=== PATIENT | male | born 1945 | race Caucasian/White ===

== ENCOUNTER 2017-01-21 05:44 | Emergency (ER) | payer MEDICARE, OTHER ==
[2017-01-21 05:53] VITALS: TEMP 97.5
--- NOTE | 2017-01-21 06:21 | ED ---
General Adult HPI - General Source: patient, RN notes reviewed Mode of arrival: ambulatory Limitations: no limitations <Milton Marin - Last Filed: 01/21/17 06:55> <Fidel Lopez - Last Filed: 01/21/17 10:32> - General Chief complaint: Extremity Injury, Lower Stated complaint: Numbness in legs Time Seen by Provider: 01/21/17 05:50 - History of Present Illness Initial comments: This is a 71-year-old male who presents emergency Department complaining of bilateral foot pain much much worse in the left foot. Patient states the pain seems to be somewhat intermittent in that it comes on very severe and then at times when he rests it seems to subside. Patient denies any recent injury. Patient has had any indication of the toes on the right foot secondary to an infection years ago. Patient states the more he moves a lot more it hurts. It definitely hurts to touch the toes of the foot. Patient denies any fever or chills patient denies any redness and in fact he states his foot is very pale at times. Patient denies any edema or swelling patient denies any calf pain. Patient does state he has had a history of blood clots in the past. Patient denies any difficulty breathing shortness of breath per patient denies any chest pain. Patient denies abdominal pain patient denies nausea vomiting diarrhea (Milton Marin) - Related Data Home Medications Medication Instructions Recorded Confirmed Aspirin 325 mg PO DAILY 01/21/17 01/21/17 Lisinopril-Hctz 20-25 mg 1 tab PO DAILY 01/21/17 01/21/17 [Zestoretic 20-25] Metoprolol Tartrate [Lopressor] 50 mg PO BID 01/21/17 01/21/17 Multivitamins, Thera [Multivitamin 1 tab PO DAILY 01/21/17 01/21/17 (formulary)] Allergies Allergy/AdvReac Type Severity Reaction Status Date / Time No Known Allergies Allergy Verified 01/21/17 08:20 Review of Systems ROS Other: All systems not noted in ROS Statement are negative. <Milton Marin - Last Filed: 01/21/17 06:55> ROS Other: All systems not noted in ROS Statement are negative. <Fidel Lopez - Last Filed: 09/27/17 10:32> ROS Statement: Those systems with pertinent positive or pertinent negative responses have been documented in the HPI. Past Medical History Past Medical History: Cancer Additional Past Medical History / Comment(s): hx of skin cancer, hx of blood clots History of Any Multi-Drug Resistant Organisms: None Reported Past Psychological History: No Psychological Hx Reported Smoking Status: Former smoker Past Alcohol Use History: None Reported Past Drug Use History: None Reported <Milton Marin - Last Filed: 01/21/17 06:55> General Exam Limitations: no limitations <Milton Marin - Last Filed: 01/21/17 06:55> <Fidel Lopez - Last Filed: 01/21/17 10:32> - General Exam Comments Initial Comments: GENERAL: Patient is well-developed and well-nourished. Patient is nontoxic and well- hydrated and is in moderate distress. ENT: Neck is soft and supple. No significant lymphadenopathy is noted. Oropharynx is clear. Moist mucous membranes. Neck has full range of motion without eliciting any pain. EYES: The sclera were anicteric and conjunctiva were pink and moist. Extraocular movements were intact and pupils were equal round and reactive to light. Eyelids were unremarkable. PULMONARY: Unlabored respirations. Good breath sounds bilaterally. No audible rales rhonchi or wheezing was noted. CARDIOVASCULAR: There is a regular rate and rhythm without any murmurs gallops or rubs. ABDOMEN: Soft and nontender with normal bowel sounds. No palpable organomegaly was noted. There is no palpable pulsatile mass. SKIN: Skin is clear with no lesions or rashes and otherwise unremarkable. NEUROLOGIC: Patient is alert and oriented x3. Cranial nerves II through XII are grossly intact. Motor and sensory are also intact. Normal speech, volume and content. Symmetrical smile. MUSCULOSKELETAL: Unable to get any DP pulses. Pale there is no capillary refill. However on reexamination 5 minutes later the patient does have some slow capillary refill and the patient states at this time he has less pain. PSYCHIATRIC: Normal psychiatric evaluation. (Milton Marin) Course <Milton Marin - Last Filed: 01/21/17 06:55> <Fidel Lopez - Last Filed: 01/21/17 10:32> Vital Signs 01/21/17 01/21/17 01/21/17 05:49 06:40 08:00 Temperature 97.5 F L Pulse Rate 74 68 77 Respiratory 20 18 Rate Blood Pressure 159/72 141/65 O2 Sat by Pulse 98 97 95 Oximetry 01/21/17 09:00 Temperature Pulse Rate 67 Respiratory 18 Rate Blood Pressure 141/65 O2 Sat by Pulse 93 L Oximetry - Reevaluation(s) Reevaluation #1: 01/21/17 08:01 Call received from radiologist with concern for completely exclude graft. Patient was seen by Dr. Hawley who does recommend transfer. Patient states his surgery was at [facility] in [place] approximate 12 years ago. Patient states discomfort is only mild at this time and feels more like numbness. Bilateral lower extremities have absent pedal pulses. Mild pallor. Mild coolness. Cap refill 3-4 seconds. Attempting to call [facility] in [place], emergency department for urgent transfer. 01/21/17 08:13 Spoke with Sherman with admitting and unable to do emergent transfer at this time. States transferred to not go to the emergency department. They are getting in touch with the utilization review who is currently in a meeting and will call back within 15 minutes. Case management with our emergency department has also been involved to help with transfer. 01/21/17 08:48 Case again discussed with Dr. Hawley who does agree to start low-dose heparin. 01/21/17 10:26 [facility] in [place] did call back and has no beds. They stated they were looking for other facilities however still no callback received. Case was discussed with Ana at [facility] who will accept for Dr. Villegas. (Fidel Lopez) Medical Decision Making - Lab Data Result diagrams: 01/21/17 06:20 01/21/17 06:20 <Milton Marin - Last Filed: 01/21/17 06:55> - Lab Data Result diagrams: 01/21/17 06:20 01/21/17 06:20 - Radiology Data Radiology results: image reviewed (CTA of abdomen with runoff shows complete occlusion abdominal bifemoral graft.) <Fidel Lopez - Last Filed: 01/21/17 10:32> - Medical Decision Making I spoke with Dr. Hawley he stated he would come see the patient he also wanted me to order a CAT scan of the abdomen and pelvis with runoff I did so. Dr. Lopez will be taking over the care of this patient at 7 AM (Milton Marin) - Lab Data Lab Results 01/21/17 01/21/17 01/21/17 Range/Units 06:20 06:20 06:20 WBC 10.9 H (3.8-10.6) k/uL RBC 4.88 (4.30-5.90) m/uL Hgb 15.4 (13.0-17.5) gm/dL Hct 46.3 (39.0-53.0) % MCV 95.0 (80.0-100.0) fL MCH 31.6 (25.0-35.0) pg MCHC 33.2 (31.0-37.0) g/dL RDW 12.9 (11.5-15.5) % Plt Count 200 (150-450) k/uL Neutrophils % 73 % Lymphocytes % 16 % Monocytes % 6 % Eosinophils % 2 % Basophils % 0 % Neutrophils # 8.0 H (1.3-7.7) k/uL Lymphocytes # 1.7 (1.0-4.8) k/uL Monocytes # 0.7 (0-1.0) k/uL Eosinophils # 0.2 (0-0.7) k/uL Basophils # 0.0 (0-0.2) k/uL PT 11.0 (9.0-12.0) sec INR 1.1 (<1.2) APTT 25.9 (22.0-30.0) sec Sodium 138 (137-145) mmol/L Potassium 4.2 (3.5-5.1) mmol/L Chloride 103 (98-107) mmol/L Carbon Dioxide 18 L (22-30) mmol/L Anion Gap 17 mmol/L BUN 23 H (9-20) mg/dL Creatinine 1.02 (0.66-1.25) mg/dL Est GFR (MDRD) Af Amer >60 (>60 ml/min/1.73 sqM) Est GFR (MDRD) Non-Af >60 (>60 ml/min/1.73 sqM) Glucose 198 H (74-99) mg/dL Calcium 9.5 (8.4-10.2) mg/dL Total Bilirubin 0.5 (0.2-1.3) mg/dL AST 27 (17-59) U/L ALT 34 (21-72) U/L Alkaline Phosphatase 46 (38-126) U/L Total Protein 7.3 (6.3-8.2) g/dL Albumin 4.2 (3.5-5.0) g/dL Critical Care Time Critical Care Time: Yes Total Critical Care Time: 34 <Fidel Lopez - Last Filed: 01/21/17 10:32> Disposition <Milton Marin - Last Filed: 01/21/17 06:55> Time of Disposition: 10:31 - Out of Hospital Transfer - Req. Specs Out of Hospital Transfer - Requested Specifics: Other Emergency Center <Fidel Lopez - Last Filed: 01/21/17 10:32> Clinical Impression: Vascular graft occlusion Disposition: OTHER INSTITUTION NOT DEFINED Condition: Serious Referrals: Rishi Corley DO [Primary Care Provider] - 1-2 days
[2017-01-21 06:32] LABS: Basophils % (A) 0 %; CH 31.4; CHCM 33.1; Eosinophils # (A) 0.2 k/uL (0-0.7); Eosinophils % (A) 2 %; HCT 46.3 % (39.0-53.0); HDW 2.27; HGB 15.4 gm/dL (13.0-17.5); Luc # (Auto) 0.34; Luc % (Auto) 3; Lymphocytes # (A) 1.7 k/uL (1.0-4.8); Lymphocytes % (A) 16 %; MCH 31.6 pg (25.0-35.0); MCHC 33.2 g/dL (31.0-37.0); Mean Platelet Volume 8.3; Monocytes # (A) 0.7 k/uL (0-1.0); Monocytes % (A) 6 %; Neutrophils % (A) 73 %; RBC 4.88 m/uL (4.30-5.90); RDW 12.9 % (11.5-15.5); WBC 10.9 k/uL (3.8-10.6); WBC (Perox) 11.18
[2017-01-21 06:40] LABS: ALT 34 U/L (21-72); AST 27 U/L (17-59); Alkaline Phosphatase 46 U/L (38-126); Anion Gap 17 mmol/L; Blood Urea Nitrogen 23 mg/dL (9-20); Calcium 9.5 mg/dL (8.4-10.2); Carbon Dioxide 18 mmol/L (22-30); Chloride 103 mmol/L (98-107); Glucose 198 mg/dL (74-99); Non-African American GFR(MDRD) >60 (>60 ml/min/1.73 sqM); Potassium 4.2 mmol/L (3.5-5.1); Sodium 138 mmol/L (137-145); Total Bilirubin 0.5 mg/dL (0.2-1.3); Total Protein 7.3 g/dL (6.3-8.2)
[2017-01-21 06:46] LABS: INR 1.1 (<1.2); Partial Thromboplastin Time 25.9 sec (22.0-30.0)
--- NOTE | 2017-01-21 08:00 | CT ---
EXAMINATION TYPE: CT angio abdomen pelvis DATE OF EXAM: 01/21/2017 COMPARISON: NONE HISTORY: bilateral lower extremity numbness CT DLP: 1613.10 mGycm, Automated Exposure Control for Dose Reduction was Utilized. CONTRAST: CTA scan of the abdomen and pelvis with lower extremity runoff is performed without and with IV Contr ast, patient injected with 125 mL of Omnipaque 350. Three-D reconstructed images are created on [employer] workstation and reviewed. FINDINGS: VASCULAR: There is mild mixed plaque in the visualized descending thoracic aorta. There is origin of the common hepatic artery from the proximal abdominal aorta at level of celiac axis, normal variant. There is patency of celiac artery, common hepatic artery, and SMA. There is patency of bilateral sing le renal arteries seen best on coronal image 47, there is suspected greater than 50% stenosis proxima l right renal artery on coronal image 46 and near axial image 52. There is evidence of prior surgery just below the SMA with multiple surgical clips. There is complete occlusion of the abdominal aorta just below this. There is visualization of aortobiiliac stent kyle t which is also completely occluded. There is a femorofemoral crossover graft which is also completel y occluded in the anterior lower pelvis. There is complete occlusion of common and external iliac art eries bilaterally. There is complete occlusion of internal iliac arteries at origin with some reconst itution of smaller vessels in the deeper pelvis. There is complete occlusion of right common femoral artery and deep femoral artery. There is some rec onstitution of the right superficial femoral artery beginning on axial image 177 presumed from small vessel collateral flow. There is moderate to severe calcified plaque in the mid to distal right super ficial femoral artery with some areas of greater than 50% stenosis likely present. Popliteal artery i s patent without significant stenosis. There is subsequent bifurcation and trifurcation into anterior tibial as well as posterior tibial and peroneal arteries. There is poor flow 3 vessels beginning mid leg level. There is nonvisualized flow in distal leg level above the ankle joint. Some vascular flow or reconstitution at left common femoral artery is seen in the groin near axial im age 129. There is flow identified into left deep femoral artery and a lateral branching vessel. There is occluded left superficial femoral artery with prominent calcification distally. There is occluded left popliteal artery. There is poor or nonvisualized three-vessel flow in the left leg. LUNG BASES: Cardiomegaly is present. There is 7 mm groundglass nodule anteriorly right lower lobe on axial image 3. LIVER/GB: Liver is diffusely low dense consistent with fatty infiltration. PANCREAS: No significant abnormality is seen. SPLEEN: Heterogeneity of spleen is likely product of time of imaging. Other etiologies not excluded. ADRENALS: Slight low dense nodular thickening to both adrenal glands favors benign hyperplasia. KIDNEYS: There is 3 cm simple appearing cyst laterally upper to mid pole level right kidney. BOWEL: No significant abnormality is seen. PROSTATE/SEMINAL VESICLES: Prostate gland is enlarged in size bulging on bladder base, underlying BPH is suspected. LYMPH NODES: No greater than 1cm abdominal or pelvic lymph nodes are appreciated. OSSEOUS STRUCTURES: No significant abnormality is seen. OTHER: No significant additional abnormality is seen. LOWER EXTREMITIES: Fairly moderate medial joint space loss bilateral knees is seen. IMPRESSION: 1. 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 There is complete occlusion of bypass graft also noted. There is complete occlusion of femoral cros sover in the anterior lower pelvis also noted. There is some reconstitution in the right SFA and popl iteal artery with poor flow mid tibiofemoral level right lower extremity and absent three-vessel flow mid to distal level noted. There is absent flow in left SFA and popliteal artery and trifurcation wi th minimal collateral flow at tibiofemoral level noted. 2. Incidental 7 mm right basilar nodule. 3. Incidental significant atherosclerotic stenosis right renal artery near origin estimated 70%. Critical results communicated to covering ER physician at time of dictation.
[2017-01-21] MEDS ORDERED: HEPARIN SODIUM,PORCINE 5,000 UNIT/ML 1 ML VIAL IV ONE (08:47)
[2017-01-21] MEDS ORDERED: HEPARIN SODIUM,PORCINE 5,000 UNIT/ML 1 ML VIAL IV PRN (08:47)
[2017-01-21] MEDS ORDERED: HEPARIN SODIUM,PORCINE/D5W PMX 25,000 UNIT in DEXTROSE/WATER 1 500ML.BAG IV SCH (09:00)
--- NOTE | 2017-01-21 10:22 | CONS ---
DATE OF CONSULTATION: 01/21/2017 This is a 71-year-old gentleman who came to the emergency room with history of 2 days of discomfort in the right lower extremity. The patient had an aortobifem graft done about 12 years ago at [facility] and also had a right transmetatarsal amputation done at the [facility]. He usually goes to [place] for his procedures. MEDICAL HISTORY: History of hypertension, borderline diabetes. SURGICAL HISTORY: Patient had aortobifem graft done and also had a transmetatarsal amputation done at [facility]. EXAMINATION: NECK: Supple. No bruit appreciated. CHEST: Clear to auscultation. ABDOMEN: Soft. There is a midline incision scar. Femorals are not palpable. Patient has a capillary refill. No Doppler signal noted. Discussed with Dr. Lopez and the patient. Patient has been going to the [facility]. We have done the CTA of the abdomen with runoff which showed an occluded graft. At this point, motor functions are normal. Capillary refill is normal. We will make arrangement to be transferred to tertiary center and the patient would like to go to [facility]. He has been there Dr. Lopez is making arrangements. In the meantime , we will heparinize the patient. Patient agrees to go. MMODL / IJN: [id number] / [id number]
[2017-01-21 10:38] VITALS: BP 175/75; PULSE 83; RESP 20
== END 2017-01-21 10:52 | disposition other institution (70) ==
LOC: EC 05:44
DX: T82.868A Thrombosis due to vascular prosthetic devices, implants and grafts, initial encounter (principal); Z85.828 Personal history of other malignant neoplasm of skin; Z87.891 Personal history of nicotine dependence; Z79.82 Long term (current) use of aspirin; Z79.899 Other long term (current) drug therapy
CPT/HCPCS: 36415; 80053; 85025; 85610; 85730; 74174; 99285; 96365; 96366; 96376; J1644 ×2; Q9967

== ENCOUNTER → 2017-11-24 | Outpatient (CLI) | payer OTHER ==
--- NOTE | 2017-11-24 09:58 | ECHOF ---
Referral Reason:I25.10 Atherosclerotic heart disease of [place] MEASUREMENTS -------- HEIGHT: 170.2 cm WEIGHT: 96.2 kg BP: 176/70 RVIDd: 3.5 cm (< 3.3) IVSd: 1.1 cm (0.6 - 1.1) LVIDd: 4.3 cm (3.9 - 5.3) LVPWd: 1.3 cm (0.6 - 1.1) IVSs: 1.7 cm LVIDs: 3.1 cm LVPWs: 1.7 cm LA Diam: 3.9 cm (2.7 - 3.8) LAESV Index (A-L): 29.83 ml/m Ao Diam: 3.2 cm (2.0 - 3.7) AV Cusp: 2.3 cm (1.5 - 2.6) MV EXCURSION: 19.544 mm (> 18.000) MV EF SLOPE: 105 mm/s (70 - 150) EPSS: 0.2 cm MV E Marty: 0.98 m/s MV DecT: 209 ms MV A Marty: 0.73 m/s MV E/A Ratio: 1.34 FINDINGS -------- Resting bradycardia (HR<60bpm). This was a technically good study. The left ventricular size is normal. There is mild concentric left ventricular hypertrophy. Overa ll left ventricular systolic function is normal with, an EF between 55 - 60 %. The right ventricle is mildly enlarged. LA is midly dilated 29-33ml/m2. The right atrium is normal in size. There is mild aortic valve sclerosis. Mild mitral annular calcification present. There is trace mitral regurgitation. The tricuspid valve appears structurally normal. Trace/mild (physiologic) pulmonic regurgitation. The aortic root size is normal. Normal inferior vena cava with normal inspiratory collapse consistent with estimated right atrial pre ssure of 5 mmHg. There is no pericardial effusion. CONCLUSIONS -------- 1. Resting bradycardia (HR<60bpm). 2. This was a technically good study. 3. The left ventricular size is normal. 4. There is mild concentric left ventricular hypertrophy. 5. Overall left ventricular systolic function is normal with, an EF between 55 - 60 %. 6. The right ventricle is mildly enlarged. 7. LA is midly dilated 29-33ml/m2. 8. The right atrium is normal in size. 9. There is mild aortic valve sclerosis. 10. Mild mitral annular calcification present. 11. There is trace mitral regurgitation. 12. The tricuspid valve appears structurally normal. 13. Trace/mild (physiologic) pulmonic regurgitation. 14. The aortic root size is normal. 15. Normal inferior vena cava with normal inspiratory collapse consistent with estimated right atrial pressure of 5 mmHg. 16. There is no pericardial effusion. CLINICAL SERVICES CONSULTANT: Melissa Mendez RDCS
== END | disposition home or self-care (01) ==
LOC: RADECHMAIN 08:01
PROVIDERS: ATTEND Internal Medicine Cardiovascular Disease
DX: I51.7 Cardiomegaly (principal); I08.0 Rheumatic disorders of both mitral and aortic valves; Z95.1 Presence of aortocoronary bypass graft; Z95.5 Presence of coronary angioplasty implant and graft
CPT/HCPCS: 93306

== ENCOUNTER 2020-04-02 11:15 | Emergency (ER) | payer MEDICARE, OTHER ==
[2020-04-02 11:39] VITALS: BP 142/67; PULSE 60; RESP 18; TEMP 98.1
[2020-04-02] MEDS ORDERED: CEPHALEXIN 500MG STARTER PACK 4 CAP BTL PO STA (12:00)
[2020-04-02] MEDS ORDERED: CEPHALEXIN 500 MG CAP PO STA (12:00)
--- NOTE | 2020-04-02 12:15 | ED ---
General Adult HPI - General Chief complaint: Skin/Abscess/Foreign Body Stated complaint: male Time Seen by Provider: 04/02/20 11:48 Source: patient, family, RN notes reviewed, old records reviewed Mode of arrival: ambulatory Limitations: physical limitation - History of Present Illness Initial comments: 74-year-old male patient to ED for evaluation of some erythema to a scar in his left inguinal region which has been ongoing for the last 3-4 days. Denies any pain. Denies any other acute complaints. Systemic: Pt denies fatigue, fever/chills, rash. Pt denies weakness, night sweats, weight loss. Neuro: Pt denies headache, visual disturbances, syncope or pre-syncope. HEENT: Pt denies ocular discharge or irritation, otalgia, rhinorrhea, pharyngit is or notable lymphadenopathy. Cardiopulmonary: Pt denies chest pain, SOB, heart palpitations, dyspnea on exertion. Abdominal/GI: Pt denies abdominal pain, n/v/d. : Pt denies dysuria, burning w/ urination, frequency/urgency. Denies new onset urinary or bowel incontinence. MSK: Pt denies myalgia, loss of strength or function in extremities. Neuro: Pt denies new onset weakness, paresthesias. - Related Data Home Medications Medication Instructions Recorded Confirmed Aspirin 325 mg PO DAILY 01/21/17 01/21/17 Lisinopril-Hctz 20-25 mg 1 tab PO DAILY 01/21/17 01/21/17 [Zestoretic 20-25] Metoprolol Tartrate [Lopressor] 50 mg PO BID 01/21/17 01/21/17 Multivitamins, Thera [Multivitamin 1 tab PO DAILY 01/21/17 01/21/17 (formulary)] Previous Rx's Medication Instructions Recorded Cephalexin [Keflex] 500 mg PO Q6HR 10 Days #40 cap 04/02/20 Allergies Allergy/AdvReac Type Severity Reaction Status Date / Time No Known Allergies Allergy Verified 04/02/20 11:38 Review of Systems ROS Statement: Those systems with pertinent positive or pertinent negative responses have been documented in the HPI. ROS Other: All systems not noted in ROS Statement are negative. Past Medical History Past Medical History: Coronary Artery Disease (CAD), Cancer, Diabetes Mellitus, Deep Vein Thrombosis (DVT), Myocardial Infarction (DE) Additional Past Medical History / Comment(s): hx of skin cancer, hx of blood clots History of Any Multi-Drug Resistant Organisms: None Reported Past Surgical History: Coronary Bypass/CABG Past Psychological History: No Psychological Hx Reported Smoking Status: Never smoker Past Alcohol Use History: None Reported Past Drug Use History: None Reported General Exam - General Exam Comments Initial Comments: Constitutional: NAD, AOX3, Pt has pleasant affect. HEENT: NC/AT, trachea midline, neck supple, no lymphadenopathy. External ears appear normal, without discharge. Mucous membranes moist. Eyes PERRLA, EOM intact. There is no scleral icterus. No pallor noted. Cardiopulmonary: RRR, no murmurs, rubs or gallops, no JVD noted. Lungs CTAB in anterior and posterior alejandro. No peripheral edema. Abdominal exam: Abdomen soft and non-distended. Abdomen non-tender to palpation in all 4 quadrants. Bowel sounds active in LLQ. No hepatosplenomegaly. No ecchymosis Neuro: CN II-XII grossly intact. No nuchal rigidity. No raccon eyes, no perez sign, no hemotympanum. No cervical spinal tenderness. MSK: Mild erythema noted to a scar in the left inguinal region which is about 6 cm long. No fluctuance or drainage. No streaking. No tenderness. Limitations: physical limitation Course Vital Signs 04/02/20 11:32 Temperature 98.1 F Pulse Rate 60 Respiratory 18 Rate Blood Pressure 142/67 O2 Sat by Pulse 97 Oximetry Medical Decision Making - Medical Decision Making 74-year-old male patient to ED for evaluation of erythema to a scar in his left inguinal region. Patient vital signs are stable, afebrile. Physical exam did display mild erythema noted to the scar. Patient will be placed on Keflex 4 times a day with outpatient follow-up and strict return precautions. Case discussed and pt seen with Dr. Marin. Disposition Clinical Impression: Cellulitis Disposition: HOME SELF-CARE Condition: Stable Instructions (If sedation given, give patient instructions): Cellulitis (ED) Additional Instructions: Take antibiotics as directed. Recommend a recheck by PCP in 1-2 days. Return to ED with any worsening symptoms. Prescriptions: Cephalexin [Keflex] 500 mg PO Q6HR 10 Days #40 cap Is patient prescribed a controlled substance at d/c from ED?: No Referrals: [facility],Clinic [Primary Care Provider] - 1-2 days
== END 2020-04-02 12:31 | disposition home or self-care (01) ==
LOC: EC 11:15
DX: L03.90 Cellulitis, unspecified (principal); I25.10 Atherosclerotic heart disease of native coronary artery without angina pectoris; I25.2 Old myocardial infarction; Z79.82 Long term (current) use of aspirin; Z79.899 Other long term (current) drug therapy; Z95.1 Presence of aortocoronary bypass graft; Z86.718 Personal history of other venous thrombosis and embolism; Z85.828 Personal history of other malignant neoplasm of skin
CPT/HCPCS: 99283